=== PATIENT | female | born 1965 | race Caucasian/White ===

== ENCOUNTER → 2017-02-24 | Outpatient (CLI) | payer OTHER ==
[~2017-02-24] MED LIST: ARIP1TAB4 PO; ESTR625TA PO; VENL150T PO; VIIB20TA PO; XANA0.25 PO
--- NOTE | 2017-02-24 14:07 | REPMRS ---
Patient History The patient states she had a clinical breast exam in Patient is postmenopausal. Family history of pancreatic cancer in paternal grandmother and colorectal cancer in paternal uncle. Taking unspecified hormones for 12 years. Digital Woman Screen Mammo: February 24, 2017 - Exam #: [id number] Bilateral CC and MLO view(s) were taken. Technologist: Salma Garay, Technologist Prior study comparison: February 24, 2016, digital woman screen mammo performed at [facility]. February 27, 2015, left breast digital mammo diagnostic unilateral, performed at [facility]. FINDINGS: The breast tissue is heterogeneously dense. This may lower the sensitivity of mammography. There has been no change in the appearance of the mammogram from the prior studies. There is a moderate amount of residual fibroglandular tissue which is fairly symmetric. There is no interval development of dominant mass, areas of architectural distortion, or clustered microcalcification typical of malignancy. ASSESSMENT: BI-RADS/ACR category 1 mammogram. Negative. Recommendation Routine screening mammogram in 1 year (for women over age 40). This mammogram was interpreted with the aid of an FDA-approved computer-aided dectection system. Electronically Signed By: Dario Kerns MD 02/24/17 [id number]
== END ==
LOC: M WHC 13:04
PROVIDERS: ATTEND Nurse Practitioner Women's Health
DX: Z12.31 Encounter for screening mammogram for malignant neoplasm of breast (principal); Z80.0 Family history of malignant neoplasm of digestive organs; Z83.79 Family history of other diseases of the digestive system